=== PATIENT | male | born 1990 | race Caucasian/White ===

== ENCOUNTER 2017-05-22 09:43 | Emergency (ER) | payer OTHER ==
--- NOTE | 2017-05-22 11:25 | RAD ---
FRONTAL VIEW CHEST: Date: 05/22/17 INDICATION: Cough and congestion. FINDINGS: No evidence of consolidation, effusion, or pneumothorax. Cardiac silhouette is normal in size. [place] us structures are intact. IMPRESSION: No focal consolidation. POS: [id number]
== END 2017-05-22 11:54 | disposition home or self-care (01) ==
LOC: ERS 09:43
DX: B34.9 Viral infection, unspecified (principal); F41.9 Anxiety disorder, unspecified; F17.210 Nicotine dependence, cigarettes, uncomplicated
CPT/HCPCS: 71010